=== PATIENT | female | born 1960 | race Caucasian/White ===

== ENCOUNTER 2016-11-20 13:19 | Emergency (ER) | payer OTHER ==
[2016-11-20 13:34] VITALS: BP 133/80
[2016-11-20] MEDS ORDERED: HYDROcodone/ACETAMIN 5-325 MG* 1 TAB PO ONE (14:08)
--- NOTE | 2016-11-20 14:15 | UC ---
General HPI - HPI Summary HPI Summary: ONSET OF SEVERE RIGHT SIDED PLEURITIC CHEST PAIN THAT BEGAN SUDDENLY THIS MORNING WHILE WALKING IN HER HOUSE. WORSE WITH MOVEMENT. NO TRAUMA. LIFTED A MODERATELY HEAVY BOX OF BOOKS YESTERDAY AT WORK BUT DID NOT NOTICE ANY ACUTE PAIN AT THAT TIME. DENIES FEVER, SOB, NAUSEA, SWEATS. NO RADIATION OF THE PAIN. NO PREVIOUS SIMILAR EPISODES. - History of Current Complaint Chief Complaint: UCGeneralIllness Stated Complaint: TRUNCAL MUSCULAR PAIN Time Seen by Provider: 11/20/16 13:58 Hx Obtained From: Patient Onset/Duration: Sudden Onset, Lasting Hours, Still Present Timing: Constant Onset Severity: Moderate Current Severity: Severe Pain Intensity: 10 Associated Signs & Symptoms: Positive: Chest Pain. Negative: Dizziness, Edema, Fever, Headache, Nausea, Palpitations, Recent Medication Changes, Trauma, Vomiting, Wheezing, Weakness - Allergy/Home Medications Allergies/Adverse Reactions: Allergies Allergy/AdvReac Type Severity Reaction Status Date / Time No Known Allergies Allergy Verified 03/31/15 21:08 Home Medications: Home Medications Ibuprofen [Advil] 800 mg 11/20/16 [History] PMH/Surg Hx/FS Hx/Imm Hx Previously Healthy: Yes Endocrine History Of: Denies: Diabetes, Thyroid Disease Cardiovascular History Of: Denies: Cardiac Disorders, Hypertension Respiratory History Of: Denies: COPD, Asthma GI/ History Of: Denies: Ulcer Cancer History Of: Denies: Breast Cancer - Surgical History Surgical History: Yes Surgery Procedure, Year, and Place: gallbladder. tonsils. appendix. 2x c- section - Social History Alcohol Use: Occasionally Substance Use Type: None Smoking Status (MU): Former Smoker Type: Cigarettes Amount Used/How Often: quit 7 years ago Length of Time of Smoking/Using Tobacco: smoked 20+ years Have You Smoked in the Last Year: Yes When Did the Patient Quit Smoking/Using Tobacco: 8 yrs Review of Systems Constitutional: Negative Respiratory: Negative Cardiovascular: Chest Pain Gastrointestinal: Negative Musculoskeletal: Myalgia All Other Systems Reviewed And Are Negative: Yes Physical Exam Triage Information Reviewed: Yes Appearance: Well-Nourished, Pain Distress - MODERATE Vital Signs: Initial Vital Signs Temp 97.9 F 11/20/16 13:28 Pulse 66 11/20/16 13:28 Resp 18 11/20/16 13:28 BP 133/80 11/20/16 13:28 Pulse Ox 100 11/20/16 13:28 Vital Signs Reviewed: Yes Eyes: Positive: Conjunctiva Clear ENT: Positive: Hearing grossly normal Neck: Positive: Supple Respiratory Exam: Normal Cardiovascular Exam: Normal Abdomen Description: Positive: Soft Musculoskeletal: Positive: No Edema, Other: - TTP TRIGGER POINT MEDIAL TO RIGHT SCAPULA Neurological: Positive: Alert Psychological: Positive: Age Appropriate Behavior Skin: Negative: rashes Diagnostics - Radiology CXR Xray Interpretation: No Acute Changes Radiology Interpretation Completed By: ED Physician Course/Dx - Differential Dx - Multi-Symptom Provider Diagnoses: TRIGGER POINT PAIN Discharge - Discharge Plan Condition: Stable Disposition: HOME Prescriptions: Cyclobenzaprine TAB* [Flexeril TAB*] 10 mg PO BID PRN #30 tab PRN Reason: Pain Hydrocodone-Acetaminophen [Lorcet 5-325 mg] 1 tab PO QID PRN #12 tab MDD 4 PRN Reason: Pain Patient Education Materials: Trigger Point Pain (ED) Referrals: Nikole Zamora MD [Primary Care Provider] - If Needed Additional Instructions: XRAY TODAY UNREMARKABLE ON MY INITIAL INTERPRETATION. WE WILL CALL YOU IF RADIOLOGY READ DIFFERS. GO TO ER WITHOUT FAIL IF YOU DEVELOP WORSENING PAIN, SHORTNESS OF BREATH, NAUSEA , SWEATS OR ANY OTHER CONCERNING SYMPTOMS.
--- NOTE | 2016-11-20 14:42 | RAD ---
INDICATION: Pleuritic chest pain COMPARISON: November 09, 2013 TECHNIQUE: PA and lateral dual-energy views were obtained. FINDINGS: Bones/Soft Tissues: There are no acute bony findings. Cardiomediastinal: The cardiomediastinal silhouette is normal. Lungs: There are no infiltrates. Pleura: There are no pleural effusions. Other: There are clips in the gallbladder fossa. IMPRESSION: NEGATIVE EXAMINATION.
== END 2016-11-20 14:40 | disposition home or self-care (01) ==
LOC: UCEAST 13:19
DX: R07.81 Pleurodynia (principal); Z90.49 Acquired absence of other specified parts of digestive tract; Z87.891 Personal history of nicotine dependence
CPT/HCPCS: 71020; 99212; G0463

== ENCOUNTER 2019-07-26 12:41 | Emergency (ER) | payer OTHER ==
--- OUTSIDE RECORDS SUMMARY | 2019-07-26 12:46 | XMS REPORT | Continuity of Care Document ---
:1960 External Reference #:[id number] Author Name Edie Ivan NP (transmitted by agent of provider Ruslan Woods) Address [address] [place] [address] Care Team Providers Name Role Phone Nikole Wong MD - Internal Care Team Information Side Stapler [phone] Medicine Problems Active Problems Provider Date Idiopathic urticaria [facility] Ingram Onset: 03/28/2019 Social History Type Date Description Comments Sex Unknown Tobacco Use Start: Unknown End: Unknown Patient is a former smoker Smoking Status Reviewed: 03/28/19 Patient is a former smoker Allergies, Adverse Reactions, Alerts Description No Known Drug Allergies Medications Active Medications SIG Qnty Indications Ordering Provider Date Levocetirizine take one tablet by 30tabs L50.1 Christopher A. Dihydrochloride mouth daily at MD Chuck 9 5mg bedtime Tablets Xolair inject 2.4 3units Christopher A. 150mg Solution milliliters (300 MD Chuck 6 Rec mg) by subcutaneous route every 4 weeks divided into 2 doses and given at 2 different injection s Epipen 2-Feng inject 0.3 2units Christopher A. milliliter (0.3 mg) MD Chuck 0 0.3mg/0.3ML Solution by intramuscular Auto-Inject route once as needed for anaphylaxis Biotin Unknown 5000mcg Tablets 0 Sub Medications Administered in Office Medication SIG Qnty Indications Ordering Provider Date Injection Omalizumab 5 MG Ruslan Woods MD 07/11/2019 Injection Therapeutic, Prophylactic Or Ruslan Woods MD 07/11/2019 Diagnostic Injection Subq/Im Injection Injection Omalizumab 5 MG Ruslan Woods MD 06/13/2019 Injection Therapeutic, Prophylactic Or Ruslan Woods MD 06/13/2019 Diagnostic Injection Subq/Im Injection Injection Omalizumab 5 MG Ruslan Woods MD 05/14/2019 Injection Therapeutic, Prophylactic Or Ruslan Woods MD 05/14/2019 Diagnostic Injection Subq/Im Injection Injection Omalizumab 5 MG Ruslan Woods MD 04/11/2019 Injection Therapeutic, Prophylactic Or Ruslan Woods MD 04/11/2019 Diagnostic Injection Subq/Im Injection Injection Omalizumab 5 MG Ruslan Woods MD 03/14/2019 Injection Therapeutic, Prophylactic Or Ruslan Woods MD 03/14/2019 Diagnostic Injection Subq/Im Injection Injection Omalizumab 5 MG Ruslan Woods MD 02/12/2019 Injection Therapeutic, Prophylactic Or Ruslan Woods MD 02/12/2019 Diagnostic Injection Subq/Im Injection Injection Omalizumab 5 MG Ruslan Woods MD 01/15/2019 Injection Therapeutic, Prophylactic Or Ruslan Woods MD 01/15/2019 Diagnostic Injection Subq/Im Injection Injection Omalizumab 5 MG Ruslan Woods MD 12/18/2018 Injection Therapeutic, Prophylactic Or Ruslan Woods MD 12/18/2018 Diagnostic Injection Subq/Im Injection Injection Omalizumab 5 MG Ruslan Woods MD 11/20/2018 Injection Therapeutic, Prophylactic Or Ruslan Woods MD 11/20/2018 Diagnostic Injection Subq/Im Injection Injection Omalizumab 5 MG Ruslan Woods MD 10/16/2018 Injection Therapeutic, Prophylactic Or Ruslan Woods MD 10/16/2018 Diagnostic Injection Subq/Im Injection Injection Omalizumab 5 MG Ruslan Woods MD 09/18/2018 Injection Therapeutic, Prophylactic Or Ruslan Woods MD 09/18/2018 Diagnostic Injection Subq/Im Injection Injection Omalizumab 5 MG Ruslan Woods MD 08/21/2018 Injection Therapeutic, Prophylactic Or Ruslan Woods MD 08/21/2018 Diagnostic Injection Subq/Im Injection Injection Omalizumab 5 MG Ruslan Woods MD 07/24/2018 Injection Therapeutic, Prophylactic Or Ruslan Woods MD 07/24/2018 Diagnostic Injection Subq/Im Injection Injection Omalizumab 5 MG Ruslan Woods MD 06/21/2018 Injection Therapeutic, Prophylactic Or Ruslan Woods MD 06/21/2018 Diagnostic Injection Subq/Im Injection Injection Omalizumab 5 MG Ruslan Woods MD 05/22/2018 Injection Therapeutic, Prophylactic Or Ruslan Woods MD 05/22/2018 Diagnostic Injection Subq/Im Injection Injection Omalizumab 5 MG Ruslan Woods MD 04/24/2018 Injection Therapeutic, Prophylactic Or Ruslan Woods MD 04/24/2018 Diagnostic Injection Subq/Im Injection Injection Omalizumab 5 MG Ruslan Woods MD 03/27/2018 Injection Therapeutic, Prophylactic Or Ruslan Woods MD 03/27/2018 Diagnostic Injection Subq/Im Injection Injection Omalizumab 5 MG Ruslan Woods MD 02/24/2018 Injection Injection Omalizumab 5 MG Ruslan Woods MD 02/24/2018 Injection Therapeutic, Prophylactic Or Ruslan Woods MD 02/24/2018 Diagnostic Injection Subq/Im Injection Injection Omalizumab 5 MG Ruslan Woods MD 01/27/2018 Injection Injection Omalizumab 5 MG Ruslan Woods MD 01/27/2018 Injection Therapeutic, Prophylactic Or Ruslan Woods MD 01/27/2018 Diagnostic Injection Subq/Im Injection Injection Omalizumab 5 MG Ruslan Woods MD 12/30/2017 Injection Therapeutic, Prophylactic Or Rulsan Woods MD 12/30/2017 Diagnostic Injection Subq/Im Injection Injection Omalizumab 5 MG Ruslan Woods MD 11/25/2017 Injection Therapeutic, Prophylactic Or Ruslan Woods MD 11/25/2017 Diagnostic Injection Subq/Im Injection Injection Omalizumab 5 MG Ruslan Woods MD 10/28/2017 Injection Therapeutic, Prophylactic Or Ruslan Woods MD 10/28/2017 Diagnostic Injection Subq/Im Injection Injection Omalizumab 5 MG Ruslan Woods MD 10/03/2017 Injection Therapeutic, Prophylactic Or Ruslan Woods MD 10/03/2017 Diagnostic Injection Subq/Im Injection Injection Omalizumab 5 MG Ruslan Woods MD 09/05/2017 Injection Therapeutic, Prophylactic Or Ruslan Woods MD 09/05/2017 Diagnostic Injection Subq/Im Injection Injection Omalizumab 5 MG Ruslan Woods MD 08/03/2017 Injection Chemotherpy Admin uRslan Woods MD 08/03/2017 Subcutaneous/Im Non-Hormonal Anti-Neoplastic Injection Therapeutic, Prophylactic Or Ruslan Woods MD 08/03/2017 Diagnostic Injection Subq/Im Injection Injection Omalizumab 5 MG Ruslan Woods MD 07/04/2017 Injection Chemotherpy Admin Ruslan Woods MD 07/04/2017 Subcutaneous/Im Non-Hormonal Anti-Neoplastic Injection Chemotherpy Admin Ruslan Woods MD 05/30/2017 Subcutaneous/Im Non-Hormonal Anti-Neoplastic Injection Allergy Injection 2 Or More Ruslan Woods MD 05/30/2017 Injection Chemotherpy Admin Ruslan Woods MD 04/25/2017 Subcutaneous/Im Non-Hormonal Anti-Neoplastic Injection Allergy Injection 2 Or More Ruslan Woods MD 04/25/2017 Injection Chemotherpy Admin Ruslan Woods MD 03/21/2017 Subcutaneous/Im Non-Hormonal Anti-Neoplastic Injection Allergy Injection 2 Or More Ruslan Woods MD 03/21/2017 Injection Chemotherpy Admin Ruslan Woods MD 02/11/2017 Subcutaneous/Im Non-Hormonal Anti-Neoplastic Injection Chemotherpy Admin Ruslan Woods MD 02/11/2017 Subcutaneous/Im Non-Hormonal Anti-Neoplastic Injection Chemotherpy Admin Ruslan Woods MD 01/03/2017 Subcutaneous/Im Non-Hormonal Anti-Neoplastic Injection Chemotherpy Admin Ruslan Woods MD 01/03/2017 Subcutaneous/Im Non-Hormonal Anti-Neoplastic Injection Chemotherpy Admin Ruslan Woods MD 12/06/2016 Subcutaneous/Im Non-Hormonal Anti-Neoplastic Injection Chemotherpy Admin Ruslan Woods MD 12/06/2016 Subcutaneous/Im Non-Hormonal Anti-Neoplastic Injection Chemotherpy Admin Ruslan Woods MD 11/05/2016 Subcutaneous/Im Non-Hormonal Anti-Neoplastic Injection Chemotherpy Admin Ruslan Woods MD 11/05/2016 Subcutaneous/Im Non-Hormonal Anti-Neoplastic Injection Chemotherpy Admin Ruslan Woods MD 09/20/2016 Subcutaneous/Im Non-Hormonal Anti-Neoplastic Injection Chemotherpy Admin Ruslan Woods MD 09/20/2016 Subcutaneous/Im Non-Hormonal Anti-Neoplastic Injection Chemotherpy Admin Ruslan Woods MD 08/23/2016 Subcutaneous/Im Non-Hormonal Anti-Neoplastic Injection Chemotherpy Admin Ruslan Woods MD 08/23/2016 Subcutaneous/Im Non-Hormonal Anti-Neoplastic Injection Chemotherpy Admin Ruslan Woods MD 07/26/2016 Subcutaneous/Im Non-Hormonal Anti-Neoplastic Injection Chemotherpy Admin Ruslan Woods MD 07/26/2016 Subcutaneous/Im Non-Hormonal Anti-Neoplastic Injection Chemotherpy Admin Ruslan Woods MD 06/21/2016 Subcutaneous/Im Non-Hormonal Anti-Neoplastic Injection Chemotherpy Admin Rsulan Woods MD 06/21/2016 Subcutaneous/Im Non-Hormonal Anti-Neoplastic Injection Chemotherpy Admin Ruslan Woods MD 05/24/2016 Subcutaneous/Im Non-Hormonal Anti-Neoplastic Injection Chemotherpy Admin Ruslan Woods MD 05/24/2016 Subcutaneous/Im Non-Hormonal Anti-Neoplastic Injection Chemotherpy Admin Ruslan Woods MD 04/19/2016 Subcutaneous/Im Non-Hormonal Anti-Neoplastic Injection Chemotherpy Admin Ruslan Woods MD 04/19/2016 Subcutaneous/Im Non-Hormonal Anti-Neoplastic Injection Chemotherpy Admin Ruslan Woods MD 03/22/2016 Subcutaneous/Im Non-Hormonal Anti-Neoplastic Injection Chemotherpy Admin Ruslan Woods MD 03/22/2016 Subcutaneous/Im Non-Hormonal Anti-Neoplastic Injection Chemotherpy Admin Ruslan Woods MD 02/23/2016 Subcutaneous/Im Non-Hormonal Anti-Neoplastic Injection Chemotherpy Admin Ruslan Woods MD 02/23/2016 Subcutaneous/Im Non-Hormonal Anti-Neoplastic Injection Chemotherpy Admin Ruslan Woods MD 01/26/2016 Subcutaneous/Im Non-Hormonal Anti-Neoplastic Injection Chemotherpy Admin Ruslan Woods MD 01/26/2016 Subcutaneous/Im Non-Hormonal Anti-Neoplastic Injection Chemotherpy Admin Ruslan Woods MD 11/21/2015 Subcutaneous/Im Non-Hormonal Anti-Neoplastic Injection Chemotherpy Admin Ruslan Woods MD 11/21/2015 Subcutaneous/Im Non-Hormonal Anti-Neoplastic Injection Chemotherpy Admin Ruslan Woods MD 10/27/2015 Subcutaneous/Im Non-Hormonal Anti-Neoplastic Injection Chemotherpy Admin Ruslan Woods MD 10/27/2015 Subcutaneous/Im Non-Hormonal Anti-Neoplastic Injection Chemotherpy Admin Ruslan Woods MD 09/19/2015 Subcutaneous/Im Non-Hormonal Anti-Neoplastic Injection Chemotherpy Admin Ruslan Woods MD 09/19/2015 Subcutaneous/Im Non-Hormonal Anti-Neoplastic Injection Immunizations Description No Information Available Vital Signs Date Vital Result Comment 07/11/2019 4:01pm BP Systolic 128 mmHg BP Diastolic 75 mmHg Height 62 inches 5'2" Weight 150.00 lb BMI (Body Mass Index) 27.4 kg/m2 Heart Rate 64 /min Respiratory Rate 16 /min O2 % BldC Oximetry 98 % 03/28/2019 4:18pm BP Systolic 120 mmHg BP Diastolic 70 mmHg Height 62 inches 5'2" Weight 148.00 lb BMI (Body Mass Index) 27.1 kg/m2 Heart Rate 56 /min Respiratory Rate 20 /min Body Temperature 97.7 F O2 % BldC Oximetry 98 % Results Description No Information Available Procedures Date Code Description Status 07/11/2019 09103 Therapeutic, Prophylactic Or Diagnostic Injection Subq/Im Completed 06/13/2019 93020 Therapeutic, Prophylactic Or Diagnostic Injection Subq/Im Completed 05/14/2019 45323 Therapeutic, Prophylactic Or Diagnostic Injection Subq/Im Completed 04/11/2019 82937 Therapeutic, Prophylactic Or Diagnostic Injection Subq/Im Completed 03/14/2019 57874 Therapeutic, Prophylactic Or Diagnostic Injection Subq/Im Completed 02/12/2019 19293 Therapeutic, Prophylactic Or Diagnostic Injection Subq/Im Completed 01/15/2019 09161 Therapeutic, Prophylactic Or Diagnostic Injection Subq/Im Completed Medical Devices Description No Information Available Encounters Type Date Location Provider Dx Diagnosis Office Visit 07/11/2019 Jean Ivan NP L50.1 Idiopathic urticaria 4:00p Office Visit 03/28/2019 Jean Hinton L50.1 Idiopathic urticaria 4:00p [facility] Assessments Date Code Description Provider 07/11/2019 L50.1 Idiopathic urticaria Edie Ivan NP 07/11/2019 L50.1 Idiopathic urticaria Ruslan Woods MD 07/11/2019 L50.1 Idiopathic urticaria Ruslan Woods MD 06/13/2019 L50.1 Idiopathic urticaria Ruslan Woods MD 06/13/2019 L50.1 Idiopathic isabellaria Ruslan Woods MD 05/14/2019 L50.1 Idiopathic isabellaria Ruslan Woods MD 05/14/2019 L50.1 Isa whytearia Ruslan Woods MD 04/11/2019 L50.1 Idiopathic isabellaria Ruslan Woods MD 04/11/2019 L50.1 Idiopathic isabellaria Ruslan Woods MD 03/28/2019 L50.1 Idiopathic urticaria [facility] Ingram 03/14/2019 L50.1 Idiopathic urticaria Ruslan Woods MD 03/14/2019 L50.1 Idiopathic isabellaria Ruslan Woods MD 02/12/2019 L50.1 Idiopathic isabellaria Ruslan Woods MD 02/12/2019 L50.1 Idiopathic isabellaria Ruslan Woods MD 01/15/2019 L50.1 Idiopathic isabellaria Ruslan Woods MD 01/15/2019 L50.1 Idiopathic urticaria Ruslan Woods MD Plan of Treatment Future Appointment(s):10/10/2019 4:00 pm - RUBEN Kasper at [facility]08/10/2019 3:35 pm - Injection 1 at [facility]07/13/2019 3:25 pm - Injection 1 at [id number] - Edie Ivan NPL50.1 Idiopathic urticariaComments:Patient presents for her routine 3 month follow-up visit for admission, treated and management of idiopathic urticaria. She had been well controlled with Xolair and had significant exposure while camping to bugs and insects; and when she sprayed herself with Deet she and immediate response of urticaria of the neck and upper arms. Recommend she avoid the Deet and use more natural sources of bug repellent. She will continue on the Xolair month today as she has had excellent response up until deet being sprayed on her skin.She can add levocetirizine for breakthrough symptoms.There is a small dry patch of skin at the right corner of mouth; small patch of eczema, she should moisturize daily and follow-up with the Loin Puller.Follow up in three months.Dr. Woods approved.Greater than 50% of the 15-minute visit was spent in discussion of the testing results and treatment options. Functional Status Description No Information Available Mental Status Description No Information Available Referrals Description No Information Available
--- OUTSIDE RECORDS SUMMARY | 2019-07-26 12:46 | XMS REPORT | Continuity of Care Document ---
:1960 External Reference #:[id number] Author Name Edie Ivan NP (transmitted by agent of provider Randi Orlando) Address [address] [place] [address] Care Team Providers Name Role Phone Nikole Wong MD - Internal Care Team Information [employer] General Supervisor [phone] Medicine Problems Active Problems Provider Date Idiopathic [...] Levocetirizine take one tablet by 30tabs L50.1 Hosseinopher A. Dihydrochloride mouth daily at MD Chuck [...] Woods MD 12/30/2017 Injection Therapeutic, Prophylactic Or Ruslan Woods MD 12/30/2017 Diagnostic Injection Subq/Im Injection Injection Omalizumab 5 MG Ruslan Woosd MD 11/25/2017 Injection Therapeutic, Prophylactic Or Ruslan [...] Ruslan Woods MD 08/03/2017 Injection Chemotherpy Admin Ruslan Woods MD 08/03/2017 Subcutaneous/Im Non-Hormonal Anti-Neoplastic Injection [...] Information Available Procedures Date Code Description Status 06/13/2019 90469 Therapeutic, Prophylactic Or Diagnostic Injection Subq/Im Completed 05/14/2019 51804 Therapeutic, Prophylactic Or Diagnostic Injection Subq/Im Completed 04/11/2019 23397 Therapeutic, Prophylactic Or Diagnostic Injection Subq/Im Completed 03/14/2019 89220 Therapeutic, Prophylactic Or Diagnostic Injection Subq/Im Completed 02/12/2019 04366 Therapeutic, Prophylactic Or Diagnostic Injection Subq/Im Completed 01/15/2019 50461 Therapeutic, Prophylactic Or Diagnostic Injection Subq/Im Completed Medical Devices Description No Information Available Encounters Type Date Location Provider Dx Diagnosis Office Visit 03/28/2019 Jean Hinton L50.1 Idiopathic urticaria 4:00p [facility] Assessments Date Code Description Provider 06/13/2019 L50.1 Idiopathic urticaria Ruslan Woods MD 06/13/2019 L50.1 Idiopathic urticaria Ruslan Woods MD 05/14/2019 L50.1 Idiopathic urticaria Ruslan Woods MD 05/14/2019 L50.1 Idiopathic urticaria Ruslan Woods MD 04/11/2019 L50.1 Idiopathic urticaria Ruslan Woods MD 04/11/2019 L50.1 Idiopathic urticaria Ruslan Woods MD 03/28/2019 L50.1 Idiopathic urticaria Nayeli Johnson [facility] 03/14/2019 L50.1 Idiopathic urticaria Ruslan Woods MD 03/14/2019 L50.1 Idiopathic urticaria Ruslan Woods MD 02/12/2019 L50.1 Idiopathic urticaria Ruslan Woods MD 02/12/2019 L50.1 Idiopathic isabellaria Ruslan Woods MD 01/15/2019 L50.1 Idiopathic urticaria Ruslan Woods MD 01/15/2019 L50.1 Idiopathic urticaria Ruslan Woods MD Plan of Treatment Future Appointment(s):07/13/2019 3:25 pm - Injection 1 at [place] Functional Status Description No Information Available Mental Status Description No Information Available Referrals Description No Information Available
--- OUTSIDE RECORDS SUMMARY | 2019-07-26 12:46 | XMS REPORT | Continuity of Care Document ---
:1960 External Reference #:[id number] Author Name Edie Ivan NP (transmitted by agent of provider Shawna George) Address [address] [place] [address] Care Team Providers Name Role Phone Nikole Wong MD - Internal Care Team Information M[employer] Layer [phone] Medicine Problems Active Problems Provider Date Idiopathic [...] Available Procedures Date Code Description Status 07/11/2019 62435 Therapeutic, Prophylactic Or Diagnostic Injection Subq/Im Completed 06/13/2019 71048 Therapeutic, Prophylactic Or Diagnostic Injection Subq/Im Completed 05/14/2019 45621 Therapeutic, Prophylactic Or Diagnostic Injection Subq/Im Completed 04/11/2019 88500 Therapeutic, Prophylactic Or Diagnostic Injection Subq/Im Completed 03/14/2019 68609 Therapeutic, Prophylactic Or Diagnostic Injection Subq/Im Completed 02/12/2019 31855 Therapeutic, Prophylactic Or Diagnostic Injection Subq/Im Completed 01/15/2019 30962 Therapeutic, Prophylactic Or Diagnostic Injection Subq/Im Completed [...] Appointment(s):10/10/2019 4:00 pm - RUBEN Kasper at [facility]5608/10/2019 3:35 pm - Injection 1 at [facility]6607/13/2019 3:25 pm - Injection 1 at [id number] - Edie Ivan NPL50.1 Idiopathic urticariaComments:Patient presents [...] should moisturize daily and follow-up with the Journalism Teacher.Follow up in three months.Dr. Woods approved.Greater than 50% of the 15-minute visit was spent in discussion of the testing results and treatment options. Functional Status Description No Information Available Mental Status Description No Information Available Referrals Description No Information Available
[2019-07-26 13:03] VITALS: BP 120/66
--- NOTE | 2019-07-26 13:20 | UC ---
Back Pain HPI - HPI Summary HPI Summary: CHIEF COMPLAINT and HPI: This is a healthy 59 you female with left, posterior anatoliy-scapular pain. Pain worse with twisting and bending. No other complaints. Improves with hot shower. Last pain woke her up. This condition began 3 days ago. pain fluctuates and is 7/10 at times. It was especially intense last night when she was awakened from sleep. 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 VITAL SIGNS & SaO2 REVIEWED. Within normal limits unless noted here. NURSES NOTE REVIEWED. "BAck pain for a few days- last night worsened. Left side outside of shoulder blade down side. Doesn't recall injuring it. " - History of Current Complaint Chief Complaint: UCBackPain Stated Complaint: BACK PAIN Time Seen by Provider: 07/26/19 13:08 Pain Intensity: 9 - Allergies/Home Medications Allergies/Adverse Reactions: Allergies Allergy/AdvReac Type Severity Reaction Status Date / Time No Known Allergies Allergy Verified 07/26/19 13:04 PMH/Surg Hx/FS Hx/Imm Hx - Additional Past Medical History Additional PMH: PAST MEDICAL HISTORY- CHRONIC and RECURRENT HEALTH PROBLEM LIST REVIEWED. Information relevant to present complaint: patient is currently healthy. Past medical history includes an appendectomy, cholecystectomy, and tonsillectomy. VISIT HISTORY REVIEWED: MEDICATIONS & ALLERGIES REVIEWED. HYPERTENSION STATUS: none. FAMILY HISTORY: Positive for: lymphoma. 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 - Surgical History Surgical History: Yes Surgery Procedure, Year, and Place: gallbladder. tonsils. appendix. 2x c- section - Social History Alcohol Use: Occasionally Substance Use Type: None Smoking Status (MU): Former Smoker Type: Cigarettes Amount Used/How Often: quit 7 years ago Length of Time of Smoking/Using Tobacco: smoked 20+ years Have You Smoked in the Last Year: Yes When Did the Patient Quit Smoking/Using Tobacco: 8 yrs Review of Systems All Other Systems Reviewed And Are Negative: Yes Constitutional: Positive: Negative Respiratory: Positive: Negative, Other - left posterior thorax pain Cardiovascular: Positive: Negative Gastrointestinal: Positive: Negative Genitourinary: Positive: Negative Motor: Positive: Negative Neurovascular: Positive: Negative Musculoskeletal: Positive: Negative Is Patient Immunocompromised?: No Physical Exam - Summary Physical Exam Summary: Appearance: The patient is well-appearing, is in no pain or distress, and is well-nourished. Eyes: Conjunctiva are clear. Pupils are equal and reactive to light and accommodation. Extra ocular muscle movement is intact. ENT: The hearing is grossly normal, the pharynx is normal, and the TMs are normal. There is no muffled or hoarse voice. No stridor. Neck: The neck is supple and there is no lymphadenopathy. Respiratory: The chest is non-tender to palpation and without crepitus. The lungs are clear, there are normal breath sounds, and there is no respiratory distress. No wheezes, rales or rhonchi. Examination of the left posterior thorax: Pain with flexion and extension in the area inferior to the left scapula and over the superior aspect of the left scapula. There is no bony point tenderness. Pain is worse with twisting. Pain is not worsened with palpation. Cardiovascular: Heart sounds reveal a regular rate and rhythm. There are no clicks, rubs or murmurs. There are no carotid bruits or thrills. Circulation is grossly intact. Abdomen: The abdomen is soft and nontender. There is no organomegaly. Bowel sounds are present and within normal limits. No point tenderness at McBurneys point. No CVA tenderness. Musculoskeletal: Strength is intact. The patient moves all extremities. Neurological: The patient is alert. Motor and sensory are examination grossly intact. Speech is normal. Psychological: The patient displays age appropriate behavior, and is conversant. GCS=15. Skin: Negative for rashes. Triage Information Reviewed: Yes Vital Signs: Initial Vital Signs Temp 97.3 F 07/26/19 12:58 Pulse 57 07/26/19 12:58 Resp 12 07/26/19 12:58 BP 120/66 07/26/19 12:58 Pulse Ox 100 07/26/19 12:58 Back Pain Course/Dx - Course Course Of Treatment: healthy 59-year-old female presents with left posterior thorax pain in the region of the left scapula. This is come on gradually over the past 3 days. It was worse last night and awakened her from sleep. She has no mechanism of injury that she can remember. 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 She has never had this before. Last night the pain was 9/10. Her past medical history is noncontributory to the present complaint. Physical exam shows her lungs to be coherent. Her pulses equal radially. She has a regular rate and rhythm, and she has no complaint of chest pain. Abdominal examination is also unremarkable. Her back pain does change with movement and my diagnosis is left posterior thoracic muscle strain. - Differential Dx/Diagnosis Differential Diagnosis/HQI/PQRI: Herniated Disc, Strain, Sprain Provider Diagnosis: Upper back strain Discharge ED - Sign-Out/Discharge Documenting (check all that apply): Patient Departure All imaging exams completed and their final reports reviewed: No Studies - Discharge Plan Condition: Stable Disposition: HOME Patient Education Materials: Thoracic Back Strain (ED) Referrals: Nikole Zamora MD [Primary Care Provider] - Additional Instructions: WE DISCUSSED: PLEASE SEEK CARE AT THE EMERGENCY DEPARTMENT IF SYMPTOMS WORSEN OR IF NEW SYMPTOMS DEVELOP. FOLLOW UP WITH YOUR PRIMARY CARE PHYSICIAN IF CONDITION CONTINUES BEYOND 3 DAYS WITHOUT IMPROVEMENT. YOUR DIAGNOSIS IS: LEFT THORACIC BACK STRAIN. FOR PAIN AND/OR SLEEP: For pain: Ibuprofen (Motrin and other brand names) 400-600mg PLUS acetaminophen (Tylenol and other brand names) 500mg - 1000mg every 8 hours. YOU CAN TAKE THESE MEDICATIONS AND ADD A LOW-DOSE OF BENADRYL TO HELP YOU SLEEP. ALSO WARM MOIST HEAT in the morning AND AND ICE TO AREA FOR PAIN AFTER WORK. SEE ATTACHED INSTRUCTIONS. IF YOU ARE NOT IMPROVING IN FIVE DAYS, SEE YOUR PROVIDER AND CONSIDER PHYSICAL THERAPY. - Billing Disposition and Condition Condition: STABLE Disposition: Home
== END 2019-07-26 13:51 | disposition home or self-care (01) ==
LOC: UCEAST 12:41
DX: S29.012A Strain of muscle and tendon of back wall of thorax, initial encounter (principal); X58.XXXA Exposure to other specified factors, initial encounter; Y92.9 Unspecified place or not applicable; Z87.891 Personal history of nicotine dependence
CPT/HCPCS: 99211; G0463